=== PATIENT | female | born 1960 | race Caucasian/White ===

== ENCOUNTER → 2017-12-07 | Outpatient (CLI) | payer OTHER ==
--- NOTE | 2017-12-07 10:38 | DIAGNOSTIC IMAGING REPORT ---
L ARTHROGRAM SHOULDER CLINICAL HISTORY: DJD L SHOULDER, PT TAKING XARELTOpain COMPARISON STUDY: None FLUOROSCOPY TIME: 1 minute. FINDINGS: Following description of procedure and informed consent, a 20-gauge needle was placed to the left shoulder joint space. Considerable scar tissue formation was encountered creating a component of extravasation. There was successful injection of sufficient contrast for the following CT study. There are no complications. Patient left the department without complications IMPRESSION: Successful left shoulder pre-CT arthrography The above report was generated using voice recognition software. It may contain grammatical, syntax or spelling errors. Electronically signed by: Vidal Lacy M.D. 12/07/2017 10:37 AM Dictated Date/Time: 12/07/2017 10:35 AM
--- NOTE | 2017-12-07 10:56 | DIAGNOSTIC IMAGING REPORT ---
LEFT SHOULDER CT ARTHROGRAM HISTORY: Left shoulder pain. TECHNIQUE: Multiaxial CT images of the left shoulder were performed following the intra-articular injection of contrast. COMPARISON STUDY: None. FINDINGS: BONES: No acute fracture or dislocation within the left shoulder. Marginal osteophytes at the humeral head. There is moderate AC joint arthrosis demonstrated by joint space narrowing. ROTATOR CUFF: There are 2 metallic anchors within the humeral head suggestive of prior rotator cuff repair. There is a 6 x 6 mm full-thickness tear of the mid to distal supraspinatus tendon. There is also a small linear high-grade partial undersurface tear at the anterior fibers of the distal supraspinatus tendon. This is best seen on sagittal image 26. There is a linear partial tear at the undersurface of the infraspinatus tendon which demonstrates an interstitial component which extends to the proximal infraspinatus tendon. This is best seen on coronal image 45. Fluid within the subacromial/subdeltoid bursa and extending into the AC joint due to the full-thickness rotator cuff tear. LABRUM: Truncated appearance of the posterior and inferior labrum consistent with a tear. BICEPS TENDON: The long head of the biceps tendon is normal in course and caliber. CARTILAGE: There is a 9 mm area of full-thickness cartilage loss within the superior glenoid. There is also a large area of full-thickness cartilage loss involving superior aspect of the humeral head. This measures up to 2 cm. The inferior glenoid cartilage is intact. Mild thinning within the inferomedial humeral head cartilage. IMPRESSION: 1. A 6 x 6 mm full-thickness tear involving the distal supraspinatus tendon. 2. Additional partial undersurface tears involving the supraspinatus and infraspinatus tendons as described above. 3. Moderate to severe osteoarthritis at the glenohumeral joint. 4. Truncated appearance to the posterior inferior labrum consistent with a tear. Electronically signed by: Km Aranda M.D. 12/07/2017 10:55 AM Dictated Date/Time: 12/07/2017 10:40 AM
== END | disposition home or self-care (01) ==
LOC: EDSTATUS 09:10 → C.RAD 09:27
PROVIDERS: ATTEND Orthopaedic Surgery
DX: M19.012 Primary osteoarthritis, left shoulder (principal); M75.102 Unspecified rotator cuff tear or rupture of left shoulder, not specified as traumatic